=== PATIENT | female | born 1985 | race Caucasian/White ===

== ENCOUNTER 2022-01-29 15:42 | Emergency (ER) | payer OTHER, BC, MEDICAID, SELFPAY ==
--- NOTE | ~2022-01-29 | XR_ITS ---
XR ankle LT min 3V DATE: 01/29/2022 15:57 INDICATION: Bed frame was dragged onto left ankle. Lateral pain. TECHNIQUE: 4 views COMPARISON: None FINDINGS: There is mild lateral ankle soft tissue swelling. No fracture or dislocation of the ankle or disruption of the ankle mortise. No periosteal reaction or bone destruction. IMPRESSION: Mild lateral ankle soft tissue swelling Reviewed, dictated and finalized at location B.
--- NOTE | 2022-01-29 15:47 | ED.LOWEXIN ---
HPI - Extremity Injury (Lower) General Chief Complaint: Extremity Injury, Lower Stated Complaint: Ankle injury Time Seen by Provider: 01/29/22 16:00 Source: patient and RN notes reviewed Mode of arrival: ambulatory Limitations: no limitations History of Present Illness HPI Narrative: 36-year-old female presents with concern for left ankle injury. Reports 5 days ago a friend dropped a box that hit her lateral left ankle causing swelling. Reports she had a surgery to that ankle in November of this year and is concerned for reinjury. She reports swelling. She reports she has a high pain tolerance and has not been having much pain. She reports she wrapped it and iced it and elevated it. She denies open skin, lacerations, abrasions, redness or warm MD complaint: ankle injury Related Data Allergies Allergy/AdvReac Type Severity Reaction Status Date / Time FLUTICASONE PROPIONATE Allergy Severe THROAT Uncoded 07/20/18 13:33 SWELLED SHUT SALMETEROL XINAFOATE Allergy Severe THROAT Uncoded 07/20/18 13:33 SWELLED SHUT Review of Systems Review of Systems: CONSTITUTIONAL: Denies malaise, chills, sweats, or fever. SKIN: Denies rash or itching, open skin, laceration, abrasion, redness, warmth, swelling. MUSCULOSKELETAL: Reports left ankle pain and swelling NEUROLOGIC: Denies numbness, weakness All systems reviewed & are unremarkable except as noted in HPI and below PMFSH Social History Social History Gender identity (if verbalized by the patient): Female Comments At time of signature, agree with nursing past medical, surgical, social and family history. There is no relevant family history pertinent to the presenting complaint Exam Narrative: GENERAL: Well-appearing, well-nourished, and in no acute distress. HEAD: Normocephalic, atraumatic. EYES: PERRLA, conjunctivae clear NECK: Supple. CHEST: Speaks in full sentences. No respiratory distress. HEART: Regular rate and rhythm. Normal and equal peripheral pulses. EXTREMITIES: Left ankle has normal strength and sensation, normal range of motion. Mild lateral edema, no ecchymosis. Normal sensation with sensitivity to light touch and pain. Mild lateral ankle tenderness. No open wounds, no skin tenting, no devitalized tissue or atrophy, no trophic changes, no obvious deformity, alignment normal, nearby joints and structures intact. Distal pulses palpable and equal bilaterally, skin warm, dry, pink. Capillary refill less than 3 seconds. SKIN: Warm, dry, no rash. NEURO: Alert and oriented x3. PSYCH: Normal mood and affect Course Course Emergency Course: Patient is aware of diagnosis, understands and agrees to treatment plan. Anticipatory guidance given. Patient agrees to follow-up as directed and is aware of reasons to seek care at the emergency department. Portions of this record may have been created with voice recognition software Level of Care: Express Care Visit Vital Signs Vital signs: Reviewed. MDM - Extremity Injury (Lower) MDM Narrative Medical decision making narrative: Patients injury and pain is consistent with musculoskeletal etiology. No signs of neurological or vascular compromise on exam. Compartments and tissues are soft without signs of compartment syndrome. Pain is felt appropriate for further evaluation on an outpatient basis. Imaging Data My impression: Images reviewed, interpreted by radiologist, agree, see report. Radiologist's impression: XR ankle LT min 3V DATE: 01/29/2022 15:57 INDICATION: Bed frame was dragged onto left ankle. Lateral pain.? TECHNIQUE: 4 views? COMPARISON: None? FINDINGS: There is mild lateral ankle soft tissue swelling. No fracture or dislocation of the ankle or disruption of the ankle mortise. No periosteal reaction or bone destruction.? IMPRESSION: Mild lateral ankle soft tissue swelling? Critical Care Time Critical Care Time Critical Care Philipp
[2022-01-29 15:58] VITALS: BP 134/97; PULSE 98; RESP 16; TEMP 36.4; O2SAT 100
== END 2022-01-29 16:12 | disposition home or self-care (01) ==
PROVIDERS: Emergency Provider Nurse Practitioner; PCP Nurse Practitioner Adult Health
DX: S99.912A Unspecified injury of left ankle, initial encounter (principal); W20.8XXA Other cause of strike by thrown, projected or falling object, initial encounter
CPT/HCPCS: 73610; 99213; G0463

== ENCOUNTER 2022-05-02 05:20 | Day surgery (SDC) | payer BC, MEDICAID, SELFPAY ==
[2022-05-02] VITALS (16 sets, daily range): BP systolic 104–130; BP diastolic 56–74; PULSE 56–97; RESP 10–20; TEMP 36.2–36.4; O2SAT 95–100
--- NOTE | ~2022-05-02 | XR_ITS ---
EXAMINATION: XR abdomen/kub 1V DATE: 05/02/2022 07:20 INDICATION: Left flank pain TECHNIQUE: A supine view of the abdomen on 2 radiographs was obtained. COMPARISON: CT dated 05/02/2022 FINDINGS: Excreted contrast is seen in the bilateral kidneys with mild left hydronephrosis. There is also a del ayed left nephrogram. The obstructing stone at the distalmost left ureter is obscured by the contrast -filled bladder. Normal bowel gas pattern. Lung bases are clear. Bones are unremarkable. IMPRESSION: 1. Delayed left nephrogram and mild left hydronephrosis due to an obstructing 3 mm on this most left ureter which is seen on prior CT but obscured by the contrast filled bladder in the current study. Reviewed, dictated and finalized at location A. IMPRESSION: 1. Delayed left nephrogram and mild left hydronephrosis due to an obstructing 3 mm on this most left ureter which is seen on prior CT but obscured by the cont rast filled bladder in the current study.
--- NOTE | ~2022-05-02 | CT_ITS ---
EXAMINATION: CT abdomen pelvis w con DATE: 05/02/2022 06:52 INDICATION: Abdominal pain TECHNIQUE: Computed tomography (CT) of the abdomen and pelvis was performed with 100 mL Omnipaque-350 intravenous contrast. Automated exposure control and iterative reconstruction technique were employe d. The dose-length product was 1138.26 mGy-cm. COMPARISON: None FINDINGS: Lung bases are clear. Heart size is normal. No pericardial or pleural effusion. Small sliding-type hi atal hernia. Focal hepatic steatosis at the ligamentum teres. Gallbladder, spleen, pancreas, bilatera l adrenal glands are normal. 8 mm right renal cyst. 2 mm nonobstructing stone at a lower pole calyx o f the left kidney. Additional 3 mm obstructing stone at the distalmost left ureter approximately 1 cm from the ureter vesicular junction. There is mild left hydroureteronephrosis and a delayed left neph rogram. Decompressed bladder, anteverted uterus and bilateral adnexa are unremarkable. Bowels includi ng the appendix are normal. Trace amount of likely physiologic free fluid in the pelvis. No abscess o r free intraperitoneal gas. No pathologically enlarged abdominal or pelvic lymphadenopathy. Bones are unremarkable. IMPRESSION: 1. Left nephrolithiasis with obstructing 3 mm stone in the distalmost left ureter with mild left hydr oureteronephrosis. Reviewed, dictated and finalized at location A. IMPRESSION: 1. Left nephrolithiasis with obstructing 3 mm stone in the distalmost left uret er with mild left hydroureteronephrosis.
--- NOTE | ~2022-05-02 | XR_ITS ---
EXAMINATION: XR retrograde pyelo w/stent LT DATE: 05/02/2022 13:23 INDICATION: Left-sided renal stones TECHNIQUE: 3 fluoroscopic images of the abdomen and pelvis were obtained during procedure performed brian Reynolds. Radiologist was not present for the imaging or procedure. The amount of fluoroscopy t moon used during this procedure was 0.5 minutes. COMPARISON: None. FINDINGS: Insurance Claims Examiner images demonstrate a small amount of residual contrast in the mildly dilated left renal collect ing system and in the bladder likely related to an earlier contrast-enhanced CT. The stone seen on CT at the distalmost left ureter is unable to be identified potentially obscured by the contrast-filled bladder. Subsequent images demonstrate a catheter advanced to the left renal pelvis with injection o f additional more dense contrast within the collecting system which remains mildly dilated. IMPRESSION: 1. Mild left hydronephrosis likely due to previous ischemic obstructing stone in the distalmost left ureter which is not identified in the current study. Correlate with procedure note as to whether the stone was extracted. Reviewed, dictated and finalized at location A. IMPRESSION: 1. Mild left hydronephrosis likely due to previous ischemic obstructing stone i n the distalmost left ureter which is not identified in the current study. Ganesh elate with procedure note as to whether the stone was extracted.
--- NOTE | 2022-05-02 05:44 | ED.GENADULT ---
HPI - General Adult General Chief complaint: Urogenital-Female <Gene Walker DO - Last Filed: 05/03/22 19:10> Stated complaint: Possible Kidney Stones <Gene Walker DO - Last Filed: 05/03/22 19:10> Time Seen by Provider: 05/02/22 05:35 <Gene Walker DO - Last Filed: 05/03/22 19:10> Source: RN notes reviewed <Gene Walker DO - Last Filed: 05/03/22 19:10> History of Present Illness HPI narrative: Patient presents emergency department from home for abdominal pain. Patient states symptoms began approximately 5 hours ago. Pain is located across the bilateral mid abdomen radiates around to the back. The pain is described as sharp and stabbing. Is been associate with nausea and vomiting. Patient denies any fevers or chills denies any diarrhea states she is not take anything for the symptoms at home. <Gene Walker DO - Last Filed: 05/03/22 19:10> Related Data Home medications: Home Medications Medication Instructions Recorded Confirmed albuterol sulfate 90 mcg/actuation 1 puff inhalation PRN 05/02/22 05/02/22 aerosol inhaler <Gene Walker DO - Last Filed: 05/03/22 19:10> Allergies/adverse reactions: Allergies Allergy/AdvReac Type Severity Reaction Status Date / Time FLUTICASONE PROPIONATE Allergy Severe THROAT Uncoded 05/02/22 08:58 SWELLED SHUT SALMETEROL XINAFOATE Allergy Severe THROAT Uncoded 05/02/22 08:58 SWELLED SHUT <Gene Walker DO - Last Filed: 05/03/22 19:10> Review of Systems Review of Systems: Gen.: Denies fevers or chills ENT: Denies congestion Respiratory: Denies shortness of breath or cough CV: Denies chest pain or palpitations GI: see HPI Musculoskeletal: Denies back pain or muscle pain Neuro: Denies numbness, tingling, weakness or focal weakness Skin: Denies rash Except as documented, all other systems reviewed and negative <DO Yariel Scherer Last Filed: 05/03/22 19:10> PMFSH Past Medical History Medical History: Medical History Asthma Endometriosis <Gene Walker DO - Last Filed: 05/03/22 19:10> Social History Social History: Social History Smoking status: Never smoker Gender identity (if verbalized by the patient): Female Sexual Orientation (if Verbalized by the Patient): Straight or Heterosexual <Gene Walker DO - Last Filed: 05/03/22 19:10> Exam Narrative: APPEARANCE: No acute distress, nontoxic, resting in bed HEENT: Normocephalic, atraumatic, OMM RESPIRATORY: No respiratory distress, clear to auscultation bilaterally with no rhonchi wheezing or rales CARDIOVASCULAR: RRR s murmur ABDOMINAL: Soft nondistended diffusely tender to palpation, no rebound or guarding MUSCULOSKELETAl: Moves all extremities. No clubbing, cyanosis or edema. NEURO: Awake and alert. Following commands, speech normal, no focal deficits SKIN:: Warm, dry. Normal Color PSYCHIATRIC: Normal affect/mood <DO Yariel Scherer Last Filed: 05/03/22 19:10> Course FRONT OFFICE ADMINISTRATOR/PA Physician Supervision Care turned over Dr. Garcia significant change awaiting consult with urology and further disposition <Gene Walker DO - Last Filed: 05/03/22 19:10> Reevaluation(s) Reevaluation #1: Patient is still in pain, with severe nausea. 0.5 mg of Dilaudid, 4 mg of Zofran ordered. Dr. Reynolds is coming to the emergency room to evaluate patient for possible stone removal. <Britni Garcia MD - Last Filed: 05/02/22 08:19> Date: 05/02/22 <Britni Garcia MD - Last Filed: 05/02/22 08:19> Time: 08:19 <Britni Garcia MD - Last Filed: 05/02/22 08:19> Vital Signs Vital signs: Vital Signs Temperature 97.6 F 05/02/22 05:29 Pulse Rate 97 05/02/22 05:29 Respiratory Rate 18 05/02/22 05:29 Pulse Oximetry 98 05/02/22 05:29 Oxygen Delivery
[2022-05-02] MEDS: MORPHINE SULFATE (*CRX) 4 MG/ML INJ IV PUSH (05:52)
[2022-05-02] MEDS: ONDANSETRON INJ 4 MG/2 ML VIAL IV PUSH ×2 (05:52→08:00)
[2022-05-02] MEDS: SODIUM CHLORIDE 0.9% IV 1,000 ML 999 ML IV CONT (06:02)
[2022-05-02 06:09] LABS: Basophils Absolute Auto 0.1 K/mm3 (0.0-0.1); Basophils Percent Auto 0.8 % (0.2-1.2); Eosinophils Absolute Auto 0.2 K/mm3 (0-0.3); Eosinophils Percent Auto 1.9 % (0-4.4); Hematocrit 39.4 % (37.0-47.0); Hemoglobin 13.6 g/dL (12.0-15.0); Immature Granulocyte Absolute 0.02 K/mm3 (0.00-0.031); Immature Granulocyte Percent A 0.2 % (0-0.5); Immature Platelet Fraction Pct 3.9 % (0.9-11.2); Lymphocytes Absolute Auto 2.45 K/mm3 (0.9-3.2); Lymphocytes Percent Auto 26.5 % (18.3-44.2); Mean Corpuscular HGB Conc 34.5 g/dl (32-36); Mean Corpuscular Hemoglobin 30.8 pg (26-34); Mean Corpuscular Volume 89.1 fl (80-100); Mean Platelet Volume 10.1 fl (7.4-10.4); Monocytes Absolute Auto 0.6 K/mm3 (0.1-0.6); Monocytes Percent Auto 6.1 % (2.6-8.5); Neutrophils Percent Auto 64.5 % (45.5-73.1); Platelet Count Result 339 k/mm3 (150-375); Red Blood Count 4.42 M/mm3 (4.2-5.4); Red Cell Distribution Width 11.8 % (11.5-14.5); White Blood Count 9.3 K/mm3 (4.5-10.0)
[2022-05-02] MEDS: KETOROLAC 30 MG/ML VIAL (*BKC) IV PUSH (06:12)
[2022-05-02 06:18] LABS: Alanine Aminotransferase 29 U/L (6-35); Albumin Level 4.7 g/dL (3.5-5.1); Alkaline Phosphatase 69 U/L (38-126); Anion Gap 16 mmol/L (8-16); Aspartate Amino Transferase 27 U/L (14-36); Bilirubin,Total 0.5 mg/dL (0.2-1.3); Blood Urea Nitrogen 12 mg/dL (7-17); Carbon Dioxide 24 mmol/L (22-30); Chloride 103 mmol/L (98-107); Estimated Glomerular Filt Rate > 60; Glucose 115 mg/dL (65-110); Lipase 54 U/L (23-300); Potassium 3.7 mmol/L (3.4-5.0); Sodium 143 mmol/L (137-145)
[2022-05-02 06:26] LABS: Appearance Urine Cloudy (Clear); Bilirubin Urine 1+ (Negative); Blood Urine 2+ (Negative); Color Urine Yellow (Yellow); Glucose Urine UA Negative (Negative); Ketones Urine Trace mg/dL (Negative); Leukocyte Esterase Ur 1+ LEU/UL (Negative); Nitrate Urine Negative (Negative); Protein Urine 1+ mg/dL (Negative); Specific Grav Ur >= 1.030 (1.001-1.035); Urobilinogen Urine 0.2 mg/dL (<2.0); pH Urine 5.5 (5.0-9.0)
[2022-05-02 06:31] LABS: Bacteria Urine Trace /hpf; Mucus Urine Moderate /lpf; RBC Urine 51-75 /hpf (0-2); Squamous Epithelial Cell Urine Many /hpf (Few); WBC Urine 51-75 /hpf
[2022-05-02 06:35] LABS: Add Urine Microscopic? YES
[2022-05-02] MEDS: MORPHINE SULFATE (*CRX) 2 MG/ML INJ IV PUSH ×2 (07:04→07:21)
[2022-05-02] MEDS: HYDROmorphone HCL INJ (*CRX) 1 MG/ML SYR 0.5 MG IV PUSH (08:00)
[2022-05-02] MEDS: LACTATED RINGERS 1,000 ML 30 ML IV CONT ×2 (08:55→09:19)
--- NOTE | 2022-05-02 09:10 | WPDURCON ---
Assessment and Plan Assessment and plan (1) Left ureteral calculus: Code(s): N20.1 - Calculus of ureter Status: Acute Assessment and Plan: Given persistent discomfort have recommended proceeding with cysto retrograde left ureteral stent placement at a minimum. If urine does not appear grossly infected may consider ureteroscopy with stone extraction laser at the same setting. Patient understands and wishes to proceed. Urology Consult Note HPI Date Seen: 05/02/22 Time Seen: 09:10 Requesting Physician: Scooter Reynolds MD Primary Care Provider: April Colvin, [employer] Consult Narrative Reason for consult: Obstructing distal left ureteral calculus with renal colic Narrative: Pili David is a 36 year old female who developed acute onset of left flank pain as well as lower abdominal discomfort approximately 6 hours ago. Patient denies any prior history of stones. Denies any fevers. Patient denies any dysuria also. Evaluation in the emergency room revealed a an obstructing 3 mm distal left ureteral stone with marked delay in excretion from the kidney. Patient has been having quite a bit of pain with nausea. I am asked to see her for more definitive therapy. Review of Systems Review of Systems: All systems reviewed & are unremarkable except as noted in HPI and below PMFSH Past Medical History Medical History Asthma Endometriosis Social History Social History Smoking status: Never smoker Gender identity (if verbalized by the patient): Female Meds Home Medications and Allergies Home Medications Medication Instructions Recorded Confirmed Type albuterol sulfate 90 mcg/actuation 1 puff inhalation PRN 05/02/22 05/02/22 History aerosol inhaler Allergies Allergy/AdvReac Type Severity Reaction Status Date / Time FLUTICASONE PROPIONATE Allergy Severe THROAT Uncoded 05/02/22 08:58 SWELLED SHUT SALMETEROL XINAFOATE Allergy Severe THROAT Uncoded 05/02/22 08:58 SWELLED SHUT Vital Signs Vital Signs - 24 hr 05/02/22 05:29 05/02/22 07:34 05/02/22 07:50 Temperature 36.4 C 36.4 C 36.4 C Pulse Rate 97 Respiratory Rate 18 Blood Pressure Pulse Oximetry 98 Oxygen Delivery Room Air 05/02/22 08:07 05/02/22 08:30 Temperature 36.4 C 36.4 C Pulse Rate 78 Respiratory Rate 14 Blood Pressure 123/71 Pulse Oximetry 99 Oxygen Delivery Exam Const: General: cooperative; No comfortable HENMT: Head: normal to inspection Resp: Effort & Inspection: normal respiratory effort Cardio: Rate: regular rate Rhythm: regular rhythm GI: Inspection: normal to inspection GI Palp: Yes Soft to palpation Results Labs CBC & Chem 7: 05/02/22 06:01 05/02/22 06:01 Labs: Short CBC 05/02/22 Range/Units 06:01 WBC 9.3 (4.5-10.0) K/mm3 Hgb 13.6 (12.0-15.0) g/dL Hct 39.4 (37.0-47.0) % Plt Count 339 (150-375) k/mm3 BMP 05/02/22 06:01 Sodium 143 Potassium 3.7 Chloride 103 Carbon Dioxide 24 BUN 12 Creatinine 0.70 Glucose 115 H Calcium 9.0 Liver Function 05/02/22 Range/Units 06:01 Total Bilirubin 0.5 (0.2-1.3) mg/dL AST 27 (14-36) U/L ALT 29 (6-35) U/L Alkaline Phosphatase 69 (38-126) U/L Albumin 4.7 (3.5-5.1) g/dL Urine 05/02/22 Range/Units 06:03 Urine Color Yellow (Yellow) Urine Appearance Cloudy H (Clear) Urine pH 5.5 (5.0-9.0) Ur Specific [place] >= 1.030 (1.001-1.035) Urine Protein 1+ H (Negative) mg/dL Urine Glucose (UA) Negative (Negative) mg/dL
--- NOTE | 2022-05-02 09:30 | WPDANESEPPF ---
Anes - Initial Pre Proc Eval Procedure: Operation Date: 05/02/22 16:00 Proposed Procedures p Cystoscopy, Left Ureteroscopy, Possible Left Retrograde Pyelogram, Possible Left Stone Extraction, Possible Left Stent Placement, Possible Holmium Laser Procedure - Scooter Reynolds MD Date/Time: 05/02/22 09:30 Surgeon: Scooter Reynolds MD Pre Op Diagnosis: Possible Kidney Stones Patient Data Age: 36 Gender: F Height: 1.65 m Weight: 100 kg Last Vital Signs Temp 36.3 C L 05/02/22 09:01 Pulse 77 05/02/22 09:01 Resp 16 05/02/22 09:01 BP 118/67 05/02/22 09:01 Pulse Ox 98 05/02/22 09:01 O2 Del Method Room Air 05/02/22 09:01 Allergies Allergy/AdvReac Type Severity Reaction Status Date / Time FLUTICASONE PROPIONATE Allergy Severe THROAT Uncoded 05/02/22 08:58 SWELLED SHUT SALMETEROL XINAFOATE Allergy Severe THROAT Uncoded 05/02/22 08:58 SWELLED SHUT Home Medications Medication Instructions Recorded Confirmed Type albuterol sulfate 90 mcg/actuation 1 puff inhalation PRN 05/02/22 05/02/22 History aerosol inhaler Laboratory Tests 05/02/22 05/02/22 05/02/22 06:01 06:01 06:03 WBC 9.3 K/mm3 K/mm3 (4.5-10.0) RBC 4.42 M/mm3 M/mm3 (4.2-5.4) Hgb 13.6 g/dL g/dL (12.0-15.0) Hct 39.4 % % (37.0-47.0) MCV 89.1 fl fl (80-100) MCH 30.8 pg pg (26-34) MCHC 34.5 g/dl g/dl (32-36) RDW 11.8 % % (11.5-14.5) Plt Count 339 k/mm3 k/mm3 (150-375) MPV 10.1 fl fl (7.4-10.4) Immature Gran % (Auto) 0.2 % % (0-0.5) Neut % (Auto) 64.5 % % (45.5-73.1) Lymph % (Auto) 26.5 % % (18.3-44.2) Ness % (Auto) 6.1 % % (2.6-8.5) Eos % (Auto) 1.9 % % (0-4.4) Baso % (Auto) 0.8 % % (0.2-1.2) Lymph # (Auto) 2.45 K/mm3 K/mm3 (0.9-3.2) Ness # (Auto) 0.6 K/mm3 K/mm3 (0.1-0.6) Eos # (Auto) 0.2 K/mm3 K/mm3 (0-0.3) Baso # (Auto) 0.1 K/mm3 K/mm3 (0.0-0.1) Abs Immat Gran (auto) 0.02 K/mm3 K/mm3 (0.00-0.031) Absolute Neuts (auto) 6.0 K/mm3 K/mm3 (1.3-6.7) Absolute Nucleated RBC 0.0 K/mm3 K/mm3 (0.0-0.012) Nucleated RBC % 0.0 % % (0.0-0.2) % Immature Plt Fraction 3.9 % % (0.9-11.2) Sodium 143 mmol/L mmol/L (137-145) Potassium 3.7 mmol/L mmol/L (3.4-5.0) Chloride 103 mmol/L mmol/L (98-107) Carbon Dioxide 24 mmol/L mmol/L (22-30) Anion Gap 16 mmol/L mmol/L (8-16) BUN 12 mg/dL mg/dL (7-17) Creatinine 0.70 mg/dL mg/dL (0.7-1.0) Estim Creat Clear Calc Not Reportable Estimated GFR > 60 (59 - ) Glucose 115 mg/dL H mg/dL (65-110) Calcium 9.0 mg/dL mg/dL (8.4-10.2) Total Bilirubin 0.5 mg/dL mg/dL (0.2-1.3) AST 27 U/L U/L (14-36) ALT 29 U/L U/L (6-35) Alkaline Phosphatase 69 U/L U/L (38-126) Total Protein 8.0 g/dL g/dL (6.3-8.2) Albumin 4.7 g/dL g/dL (3.5-5.1) Lipase 54 U/L U/L (23-300) Urine Color Yellow (Yellow) Urine Appearance Cloudy H (Clear) Urine pH 5.5 (5.0-9.0) Ur Specific [place] >= 1.030 (1.001-1.035) Urine Protein 1+ mg/dL H mg/dL (Negative) Urine Glucose (UA) Negative mg/dL mg/dL (Negative) Urine Ketones Trace mg/dL mg/dL (Negative) Ur Blood (Man) 2+ H (Negative) Urine Nitrate Negative (Negative) Urine Bilirubin 1+ H (Negative) Urine Urobilinogen 0.2 mg/dL mg/dL (<2.0) Leukocyte Esterase Rfl 1+ LUCILA/UL H LUCILA/UL (Negative) Urine RBC 51-75 /hpf H /hpf (0-2) Urine WBC 51-75 /hpf H /hpf Ur Squamous Epith Cells Many /hpf H /hpf
--- NOTE | 2022-05-02 11:05 | WPDHPUPDATE1 ---
History and Physical Update Update Date/Time: 05/02/22 11:05 History and Physical has been reviewed, including an updated exam of the patient. There are NO changes in the patient's condition. Risks, benefits, and alternatives have been discussed and questions answered. Patient agrees to proceed with procedure. Proceed with cysto, left retrograde pyelogram, left stent placement, possible ureteroscopy with holmium laser stone extraction
[2022-05-02] MEDS: diphenhydrAMINE HCl INJ 50 MG/ML VIAL 25 MG IV PUSH (12:25)
[2022-05-02] MEDS: SCOPOLAMINE 1.5 MG PATCH TRANSDERM (12:28)
[2022-05-02] MEDS: LIDOCAINE HCL 2% GEL UROJET 10 ML PKG MUCOUS MEM (13:12)
--- NOTE | 2022-05-02 13:21 | W.PM.PROC2 ---
Procedure Note - Detailed Date of Procedure 05/02/22 Pre-op Diagnosis Obstructing left ureteral calculus Post-op Diagnosis Same Procedure Performed Cystoscopy, left retrograde pyelogram, left ureteroscopy with stone extraction, left ureteral stent placement 4.8 Dominican contour Surgeon Scooter Reynolds MD Anesthesia General Description of Procedure Patient is taken to the operative suite correctly identified. Once anesthesia was obtained she was placed in dorsal lithotomy position and prepped and draped usual sterile fashion. Twenty-two Dominican scope inserted in the bladder there were no tumors noted. Left orifice was cannulated with a guidewire. There was no evidence of purulence at this time. We dilated the orifice using an 8/10 dilator. Rigid ureteral scope was then inserted into the left orifice. The stone was visualized in the distal intramural ureter. Using an escape basket retrieved the stone in 1 piece and sent it for analysis. Reinspection of the ureter revealed no residual stones. Pyelogram was then performed to confirm placement of the stent. 4.8 Dominican contour stent was then placed with the proximal end coiled in the renal pelvis and the distal in the bladder. Bladder was drained. 2% viscous lidocaine was inserted into the urethra patient is taken recovery stable condition. She will be discharged home on pain meds and antibiotic. Follow up in 1 week to 10 days for stent removal. Estimated Blood Loss 0 Drains Yes Pathology Yes Complications No immediate complications Condition Stable Disposition PACU
[2022-05-02] MEDS: fentaNYL CITRATE INJ (*CRX) 100 MCG/2 ML VIAL 25 MCG IV PUSH ×4 (14:09→14:49)
[2022-05-02] MEDS: oxyCODONE HCL (*CRX) 5 MG TAB IR PO (15:22)
== END 2022-05-02 16:00 | disposition home or self-care (01) ==
LOC: ANHED 08:01 → ANHSURGERY 08:09
PROVIDERS: Emergency Medicine; Emergency Provider Emergency Medicine; PCP Nurse Practitioner Adult Health; Visit Provider Urology
PROC: (CPT 52352; principal; 2022-05-02 16:00)
DX: N20.1 Calculus of ureter (principal); J45.909 Unspecified asthma, uncomplicated
CPT/HCPCS: 52332; 52352; 36415; 74018; 74177; 74420; 80053; 81001; 81025; 82365; 83690; 85025; 85055; 87086; 87088; 88300; 96361; 96365; 96375; 96376; 99285; A9270; C1769; C2617; J0696; J1100; J1170; J1200; J1885; J2250; J2270; J2405; J2704; J3010; J7030; J7120; Q9966; Q9967

== ENCOUNTER → 2022-06-17 11:37 | Outpatient (CLI) | payer BC, MEDICAID, SELFPAY ==
--- NOTE | ~2022-06-17 | US_ITS ---
EXAMINATION: US retroperitoneal comp DATE: 06/17/2022 12:17 INDICATION: Right ureteral stone post stent placement which was subsequently removed 2 weeks prior TECHNIQUE: Multiple ultrasound grayscale images of the kidneys were obtained. COMPARISON: CT dated 05/02/2022 FINDINGS: The right kidney measures 8.8 x 4.7 x 5.3 cm. The left kidney measures 9.3 x 5.3 x 4.8 cm. The kidney s demonstrate normal echogenicity. There is no hydronephrosis in either kidney. No stones identified . The bladder is normal. IMPRESSION: 1. Normal kidneys without hydronephrosis. Reviewed, dictated and finalized at location B. FORCE ADVISOR
== END ==
PROVIDERS: PCP Nurse Practitioner Adult Health; Visit Provider Urology
DX: N20.1 Calculus of ureter (principal)
CPT/HCPCS: 76770

== ENCOUNTER 2023-02-02 13:52 | Outpatient (CLI) | payer BC, MEDICAID, SELFPAY ==
[2023-02-02 19:20] LABS: Hematocrit 41.2 % (37.0-47.0); Hemoglobin 13.8 g/dL (12.0-15.0); Mean Corpuscular HGB Conc 33.5 g/dl (32-36); Mean Corpuscular Hemoglobin 30.4 pg (26-34); Mean Corpuscular Volume 90.7 fl (80-100); Mean Platelet Volume 10.3 fl (7.4-10.4); Platelet Count Result 354 k/mm3 (150-375); Red Blood Count 4.54 M/mm3 (4.2-5.4); Red Cell Distribution Width 11.9 % (11.5-14.5); White Blood Count 8.6 K/mm3 (4.5-10.0)
[2023-02-02 20:40] LABS: Alanine Aminotransferase 26 U/L (6-35); Albumin Level 4.4 g/dL (3.5-5.1); Alkaline Phosphatase 62 U/L (38-126); Anion Gap 9 mmol/L (8-16); Aspartate Amino Transferase 44 U/L (14-36); Bilirubin,Total 0.5 mg/dL (0.2-1.3); Blood Urea Nitrogen 13 mg/dL (7-17); Calcium 8.8 mg/dL (8.4-10.2); Carbon Dioxide 27 mmol/L (22-30); Chloride 103 mmol/L (98-107); Cholesterol 203 mg/dL (0-200); Estimated Glomerular Filt Rate > 60; Glucose 99 mg/dL (65-110); HDL Direct 34 mg/dL; Potassium 4.1 mmol/L (3.4-5.0); Sodium 139 mmol/L (137-145); Triglycerides 135 mg/dL (<150)
[2023-02-02 20:49] LABS: LDL Cholesterol Direct 132 mg/dL
== END 2023-02-02 13:53 | disposition home or self-care (01) ==
LOC: ANHCATHLAB 13:54 → ANHBWCLAB 13:57
PROVIDERS: PCP Nurse Practitioner Adult Health; Visit Provider Nurse Practitioner Adult Health
DX: Z13.228 Encounter for screening for other metabolic disorders (principal); Z13.220 Encounter for screening for lipoid disorders; R73.9 Hyperglycemia, unspecified; Z13.9 Encounter for screening, unspecified
CPT/HCPCS: 36415; 80053; 80061; 83036; 85027

== ENCOUNTER 2023-06-11 09:41 | Outpatient (CLI) | payer BC, MEDICAID, SELFPAY ==
--- NOTE | ~2023-06-11 | CT_ITS ---
Non-contrast Head CT History: Headache Technique: Axial non-contrast imaging of the brain was performed. Dose reduction technique was used on this scan by utilizing automated exposure control and iterative reconstruction technique. The dose -length product (DLP) was 605.33 mGy-cm. Findings: There is no evidence of intracranial hemorrhage, mass lesion, or acute infarct. Brain par enchyma appears normal. The ventricles and subarachnoid spaces are normal in size. The calvarium ap pears normal. The visualized paranasal sinuses and mastoid air cells are clear. Impression: No significant abnormality seen. Reviewed, dictated and finalized at location . GER ORGANIZATIONAL Impression: No significant abnormality seen.
== END 2023-06-11 09:42 | disposition home or self-care (01) ==
PROVIDERS: PCP Nurse Practitioner Adult Health; Visit Provider Nurse Practitioner Adult Health
DX: R51.9 Headache, unspecified (principal)
CPT/HCPCS: 70450

== ENCOUNTER 2023-10-22 10:33 | Outpatient (CLI) | payer BC, MEDICAID, SELFPAY ==
--- NOTE | ~2023-10-22 | MR_ITS ---
MRI of the left ankle Clinical history: Peroneal tendinitis Technique: Coronal proton-density and proton-density fat-sat images, axial proton-density and proton- density fat-sat images, and sagittal proton-density and proton-density fat-sat images were acquired. Findings: Syndesmotic ligament are intact. Anterior and posterior talofibular ligaments, and calcaneo fibular ligament are intact. Deltoid ligament is intact. Medial flexor tendons, peroneal tendons, anterior extensor tendons, and Achilles tendon are intact. No osteochondral lesion of the talar dome identified. Bone marrow signals are unremarkable. Joint spaces are preserved. No significant joint effusion. Plantar fascial intact. Normal signal preserved in the sinus Tarsi. No soft tissue mass or fluid lo ection seen. Impression: No significant abnormality identified. Reviewed, dictated and finalized at [facility]. Impression: No significant abnormality identified.
== END 2023-10-22 10:34 | disposition home or self-care (01) ==
LOC: ANHIMG 10:34
PROVIDERS: PCP Nurse Practitioner Adult Health; Visit Provider Orthopaedic Surgery
DX: M25.572 Pain in left ankle and joints of left foot (principal); M76.72 Peroneal tendinitis, left leg
CPT/HCPCS: 73721

== ENCOUNTER 2025-01-11 13:52 | Outpatient (CLI) | payer MEDICAID, SELFPAY ==
--- OUTSIDE RECORDS SUMMARY | 2025-01-11 16:31 | XMS_ITS | Continuity of Care Document ---
Author Organization [facility] Address [address] [place] [address] Phone Care Team Providers Care Community Center Coordinator Name Role Phone Mathur OD, José Unavailable Unavailable Advance Directives Directive Yes / No Effective Date File Name No Information Encounters Encounter Description Practice Location Reason(s) For Visit Diagnoses Date Provider Providers Copied on Encounter [facility], [address], [place], [place], [id number], [place] tel:[phone] [address] [facility] No Information Apr-2 8-200 6 Mathur OD José. [address] , [address], [place], [address], [place]. tel:[phone] Family History Family Member Type Diagnosis Age At Onset No Information Payers Payer name Insurance type Covered republican ID Authoriza tion(s) Medicaid [employer] [id number] Social History Type Description Quantity Date Captured Comments Sex Female Smoking Status No Information Chief Complaint And Reason For Visit No Information Reason For Referral Reason For Referral No Information History Of Present Illness Encounter Date Complaint History Of Prese nt Illness No Information Functional Status Date Functional Assessmen t No Information Instructions Date Instruction Additional Infor mation No Information Assessments Type Assessment Date No Information Patient Care Teams Name Effective Dates (start - stop) Status Members No Information
[2025-01-11 19:45] LABS: Hematocrit 40.1 % (37.0-47.0); Hemoglobin 13.1 g/dL (12.0-15.0); Mean Corpuscular HGB Conc 32.7 g/dl (32-36); Mean Corpuscular Hemoglobin 29.7 pg (26-34); Mean Corpuscular Volume 90.9 fl (80-100); Mean Platelet Volume 10.2 fl (7.4-10.4); Platelet Count Result 399 k/mm3 (150-375); Red Blood Count 4.41 M/mm3 (4.2-5.4); Red Cell Distribution Width 12.4 % (11.5-14.5); White Blood Count 11.4 K/mm3 (4.5-10.0)
[2025-01-11 20:51] LABS: Hemoglobin A1C 4.8 % (<5.7)
[2025-01-11 21:33] LABS: Alanine Aminotransferase 25 U/L (6-35); Albumin Level 4.5 g/dL (3.5-5.1); Alkaline Phosphatase 69 U/L (38-126); Anion Gap 11 mmol/L (4-12); Aspartate Amino Transferase 58 U/L (14-36); Bilirubin,Total 0.6 mg/dL (0.2-1.3); Blood Urea Nitrogen 14 mg/dL (7-17); Calcium 9.5 mg/dL (8.4-10.2); Carbon Dioxide 23 mmol/L (22-30); Chloride 104 mmol/L (98-107); Cholesterol 227 mg/dL (0-200); Estimated Glomerular Filt Rate > 60; Glucose 79 mg/dL (65-110); HDL Direct 40 mg/dL; Potassium 4.2 mmol/L (3.4-5.0); Sodium 138 mmol/L (137-145); Triglycerides 121 mg/dL (<150)
[2025-01-11 21:48] LABS: LDL Cholesterol Direct 137 mg/dL
[2025-01-11 22:04] LABS: Thyroid Stimulating Hormone 0.984 uIU/mL (0.465-4.680)
== END 2025-01-11 13:53 | disposition home or self-care (01) ==
PROVIDERS: PCP Nurse Practitioner Adult Health; Visit Provider Nurse Practitioner Adult Health
DX: Z00.00 Encounter for general adult medical examination without abnormal findings (principal); R73.9 Hyperglycemia, unspecified
CPT/HCPCS: 36415; 80053; 80061; 83036; 84443; 85027

== ENCOUNTER 2025-01-16 00:48 | Day surgery (SDC) | payer BC, MEDICAID, SELFPAY ==
[2025-01-13 10:53] VITALS: BMI 37.0
--- NOTE | 2025-01-13 11:04 | PC.NURSE ---
Addendum entered by Gloria Magana RN 01/13/25 11:08: Pt is aware NO Tramadol or Motrin/IBUPROFEN prior to surgeryJRRN Original Note: Report to the Outpatient Waiting Room, entrance under the green pavilion located off [facility], at time __130pm on date __01/16/25 . Planned Procedure Time: ___330pm .? Time changes happen often and if your time is changed the preop area will call you the afternoon before. - You and your visitor will be asked to self-screen and do not enter if you have any COVID symptoms. Please call surgeon if you need to reschedule. - A mask is optional within the hospital at this time. Patients may have clear liquids (water, carbonated beverages, clear teas, apple juice) until 3 hours prior to surgery with a maximum of 20 ounces. - No food from midnight until time of surgery and no smoking, or chewing tobacco (or any form of nicotine). No chewing gum, candy or mints. (12:30pm) Take only the following medications with a SIP of water on the morning of surgery: Nasal Mupirocin as ordered DO NOT STOP ANY OF YOUR OTHER PRESCRIPTION MEDICATIONS PRIOR TO SURGERY EXCEPT THE FOLLOWING Hold all vitamins and supplements for 3 days per anesthesiologist. Medications to discontinue per physician NONE Date to take last dose NONE Please no make-up, nail serbian, hairspray, perfume, deodorant, or body powder the day of surgery.? No jewelry (including any body piercings) or valuables the day of surgery, leave them at home.? Please take a shower or bath the night before, or the morning of, surgery with an antibacterial soap.? Wear comfortable, loose fitting clothing.? - Jewelry must be removed prior to entering the operating room.? Rings and piercings that are not removed may be cut off. - The hospital will not accept responsibility for valuables.? - Please leave all valuables, including medications, at home the day of surgery. If you are going home after surgery, a licensed electric screw driver operator must drive you home.? - NO public transportation without another adult if you receive anesthesia. - We recommend that an adult stay with you for 24 hours following discharge. - We also recommend that you do not drive, make important decision, drink alcoholic beverages, or take any drugs that were not prescribed by your health care provider for at least 24 hours after your discharge time. Follow any additional instructions given to you from your surgeon. Telephone instructions given to __Patient and asked if any additional questions and then verbalized understanding. Patient advised to call surgeon office or pre surgery nurse liaison [phone] if any additional questions.
[2025-01-16] VITALS (10 sets, daily range): BP systolic 86–124; BP diastolic 46–70; PULSE 60–88; RESP 12–21; TEMP 36.2; O2SAT 94–100; BMI 36.3
--- OUTSIDE RECORDS SUMMARY | 2025-01-16 00:54 | XMS_ITS | Clinical Summary ---
Author Organization [facility] Address [address] [address] Care Team Providers Care V Groove Cutter Name Role Phone April Colvin [facility]US RECRUITER Primary Care Provider + Source Comments [facility],non-owned Affiliates and Associated Physician Practices is amultiple site organization consisting of ambulatory clinics and hospital sitesin [place], [place], [place] and [place]. This disclosure is being madepursuant to the Care Everywhere program and may not contain all information available regarding this patient. Last updated 18.[facility] Allergies Active Allergy Reactions Criticality Noted Date Comments Advair Diskus Anaphylaxis High 12/09/2021 Throat swells Medications * Be aware that medications may not be up to date on this document. Alwaysverify current medications with the patient. albuterol HFA (Proventil; Ventolin; Proair) 108 (90 Base) MCG/ACT inhaler Inhale 2 (two) puffs by mouth every 4 hours as needed for Shortness of Breath or Wheezing 3 Active Immunizations Immunization Administration Dates Next Due HEP A/HEP B 03/17/2019 INFLUENZA VACCINE 07/23/2018,05/05/2015,09/01/19 15 MMR 09/01/2014 PNEUMOCOCCAL PPSV23 09/01/2014 TDAP (7yrs+) 03/21/2019,03/17/2019,07/23/2018 ,09/01/2014 Social History Tobacco Use Types Packs/Day Years Used Date Smoking Tobacco: Never Assessed Comments Unknown Sex and Gender Information Value Date Recorded Sex Assigned at Not on file Legal Sex Female 5:37 AM R [employer] Gender Identity Not on file Sexual Orientation Not on file Plan of Treatment Health Maintenance Due Date Last Done Comments PAP SMEAR 1986 HIV SCREENING 2001 HEPATITIS C SCREENING 11/05/2004 HEPATITIS B VACCINE (2 of 3 - Hep B Twinrix 3-dose series) 04/14/2019 03/17/2019 COVID-19 VACCINE ( season) 2024 DEPRESSION SCREENING 08/03/2024 INFLUENZA VACCINE (Season Ended) 2025 07/23/2018, 05/05/2015, 09/01/2014 DTAP/TDAP/TD VACCINES (5 - Td or Tdap) 03/21/2029 03/21/2019, 03/17/2019, 07/23/2018, Additional history exists ZOSTER VACCINE (1 of 2) 2036 PNEUMOCOCCAL VACCINE Aged Out 09/01/2014 No long er eligible based on patient's age to complete this topic HIB VACCINE Aged Out No longer eligi ble based on patient's age to complete this topic HPV VACCINE Aged Out No longer eligi ble based on patient's age to complete this topic MENINGOCOCCAL (Group B) VACCINE SHARED DECISION-MAKING Aged Out No longer eligible based on patient's age to complete this topic MENINGOCOCCAL GROUPS A/C/Y/W VACCINE Aged Out No longer eligible based on patient's age to complete this topic Insurance * Guarantor: [id number] Account Type Relation to Patient Date of Phone Billing Address Workers Comp Employer [employer] [place] - [place] [facility] Care Teams V Groove Cutter Relationship Specialty Start Date End Date April Colvin APRN-RUBIO [address] [address] PCP - General 05/08/22
--- OUTSIDE RECORDS SUMMARY | 2025-01-16 00:54 | XMS_ITS | Continuity of Care Document ---
Author Organization [facility] Address [address] [place] [address] Phone Care Team Providers Care Stabber Name Role Phone Mathur OD, José Unavailable Unavailable Advance Directives Directive Yes / No Effective Date File Name No Information Encounters Encounter Description Practice Location Reason(s) For Visit Diagnoses Date Provider Providers Copied on Encounter [facility], [address], [place], [place], [id number], [place] tel:[phone] [address] [facility] No Information Apr-2 8-200 6 Mathur OD José. [address] , [address], [place], [address], [place]. tel:[phone] Family History Family Member Type Diagnosis Age At Onset No Information Payers Payer name Insurance type Covered constitution party ID Authoriza tion(s) Medicaid [facility] [id number] Social History Type Description Quantity Date Captured [...]
--- OUTSIDE RECORDS SUMMARY | 2025-01-16 00:54 | XMS_ITS | Clinical Summary ---
Author Organization [facility] Address [address] [place] [address] Care Team Providers Care Child Development Director Name Role Phone April Colvin DEX Primary Care Provider [phone] Allergies Active Allergy Reactions Criticality Noted Date Comments Fluticasone-Salmeterol Anaphylaxis High 12/09/2021 Throat swells Medications albuterol sulfate HFA 108 (90 Base) MCG/ACT inhaler albuterol sulfate HFA 90 mcg/actuation aerosol inhaler Active Active Problems No known active problems Immunizations Immunization Administration Dates Next Due Hepatitis A/Hepatitis B(Twinrix) 03/17/2019 Influenza Adult (Generic) 07/23/2018,05/05/2015, 09/01/2014 MMR (MMRII) 09/01/2014 Pneumococcal (Pneumovax 23) 09/01/2014 Tdap (Generic) 03/21/2019,03/17/2019,07/23/2018 ,09/01/2014 Family History Medical History Relation Comments No Known Problems Brother No Known Problems Father No Known Problems Maternal Aunt No Known Problems Maternal Grandfather No Known Problems Maternal Grandmother No Known Problems Maternal Uncle No Known Problems Mother No Known Problems Other No Known Problems Paternal Aunt No Known Problems Paternal Grandfather No Known Problems Paternal Grandmother No Known Problems Paternal Uncle No Known Problems Sister Relation Status Comments Brother Father Maternal Aunt Maternal Grandfather Maternal Grandmother Maternal Uncle Mother Other Paternal Aunt Paternal Grandfather Paternal Grandmother Paternal Uncle Sister Social History Tobacco Use Types Packs/Day Years Used Date Smoking Tobacco: Never Smokeless Tobacco: Never Comments:NA Alcohol Use Standard Drinks/Week Comments Yes 0 (1 standard drink = 0.6 oz pur e alcohol) rarely PHQ-2 Answer Date Recorded PHQ-2 Score - If the patient scores above 3, please move on to questions 3-9 0 12/09/2021 Comments No Sex and Gender Information Value Date Recorded Sex Assigned at Not on file Legal Sex Female 9:08 AM CDT Gender Identity Not on file Sexual Orientation Not on file Last Filed Vital Signs Vital Sign Reading Time Taken Comments Blood Pressure 122/76 12/09/2021 1:34 PM CDT Pulse 85 12/09/2021 1:34 PM CDT Temperature 36.4 C (97.5 F) 12/09/2021 1:34 PM CDT Respiratory Rate - - Oxygen Saturation 100% 12/09/2021 1:34 PM CDT Inhaled Oxygen Concentration - - Weight 100.3 kg (221 lb 3.2 oz) 12/09/2021 1:34 PM CDT Height 165.1 cm (5' 5) 12/09/2021 1:34 PM CDT Body Mass Index 36.81 12/09/2021 1:34 PM CDT Plan of Treatment Health Maintenance Due Date Last Done Comments Cervical Cancer Screening Pap Smear (Age 30 to 64) Every 3 Years 1986 Annual Physical 1989 Hepatitis C 2004 Cervical Cancer Screening Pap with HPV Testing (Age 30 to 64) Every 5 Years 2016 Cervical Cancer Screening with HPV 2016 Hepatitis B Vaccines (2 of 3 - Hep B Twinrix 3-dose series) 04/14/2019 03/17/2019 COVID-19 Vaccine ( season) 2024 DTaP, Tdap and Td Vaccines (5 - Td or Tdap) 03/21/2029 03/21/2019, 03/17/2019, 07/23/2018, Additional history exists Pneumococcal Vaccine: Pediatrics (0 to 5 Years) and At-Risk Patients (6 to 49 Years) Aged Out 09/01/2014 No longer eligible based on patient's age to complete this topic HPV Vaccines Aged Out No longer eligi ble based on patient's age to complete this topic Meningococcal B Vaccine Aged Out No l onger eligible based on patient's age to complete this topic Meningococcal Vaccine Aged Out No yas jyothi eligible based on patient's age to complete this topic RSV Immunizations Under 20 Months Aged Out No longer eligible based on patient's age to complete this topic Insurance MEDICAID Care Teams Child Development Director Relationship Specialty Start Date End Date April Colvin NP [address] [place] [id number] PCP - General NURSE PRACTITIONER 12/09/21
--- OUTSIDE RECORDS SUMMARY | 2025-01-16 00:54 | XMS_ITS | Patient Health Record ---
Author Organization [facility] Address [address] [place] [address] Care Team Providers Care Helminthologist Name Role Phone April Colvin Primary Care Provider Teo Avila DPM Unavailable [phone] ALLERGIES Allergen (clinical drug ingredient) Drug/Non Drug Allergy documented on EMR Reaction Allergy Type Onset Date Status fluticasone / salmeterol Advair Diskus Unknown Drug Allergy Active REASON FOR REFERRAL No Information MEDICATIONS Medication SIG (Take, Route, Frequency, Duration) Notes Start Date End Date Status Albuterol Active SOCIAL HISTORY Tobacco Use: Social History Observation Description Date Details (start date - stop date) Never Smoker NA - NA Sex Assigned At : Social History Observation Description Sex Assigned At Unknown Tobacco Use: Question Answer Notes Patient is a: nonsmoker Alcohol screening: Question Answer Notes Did you have a drink containing alcohol in the p ast year? No Points 0 Interpretation Negative PROBLEMS Problem Type ICD Code Onset Dates Problem Status W/U Status Risk SNOMED Code Notes Problem Pain in left ankle and joints of left foot (M25.572) 2 Active confirmed 535087796 Problem Other chronic pain (G89.29) 2 Active confirmed 07110519 Problem Contusion of left ankle, sequela (S90.02XS) 2 Active confirmed 41839317074939793 Problem Striking against or struck by other objects, sequela (W22.8XXS) 2 Active confirmed 21221132 PLAN OF TREATMENT No Information Insurance Providers Payer Name Payer Address Payer Phone Subscriber Number Group Number Insured Name Patient Relationship to Insured Coverage Start Date Coverage End Date [address] [address] [place] [address] [id number] Pili David Self - patient is the insured MEDICAL (GENERAL) HISTORY Surgical History Surgery Date(Month/Year) ankle surgery
--- OUTSIDE RECORDS SUMMARY | 2025-01-16 00:54 | XMS_ITS | Data Portability ---
Author Organization [place] [facility], Main Office Address [address] [place] [address] Care Team Providers Care Rn Transitional Name Role Phone MALACHIURI CHEEMA Primary Care Provider MAN URI Referring Provider [phone] NICANOR NGUYEN Accounting Machine Servicer [phone] Assessment Encounter Date Assessment Date Assessment LastModified by Organization Details LastModified Time 01/12/2023 01/12/2023 This note is dictated and transcribed by [employer]. Enterostomal Nurse variances may occur. Despite proofreading, typographical errors may occur. Not available 01/14/2023 17:36:22 06/01/2023 06/01/2023 This note is dictated and transcribed by [employer]. Enterostomal Nurse variances may occur. Despite proofreading, typographical errors may occur. Not available 06/01/2023 12:19:19 Plan of Treatment Reminders Order Date Submit Date Provider Last Modified By Organization Details Last Modified Time Details Appointments None record ed. Lab None record ed. Referral None record ed. Procedures None record ed. Surgeries None record ed. Imaging XR, ankle, 3 or more view 023 01/15/20 23 [email or web address] [facility] [place], [facility], [place], [address], 3 17:36:51 Medication Orders None record ed. Patient TargetsNo targets recorded. Patient InstructionsNo instructions recorded. Reason for Referral None Reported. Results Created Date Observation Date Name Description Value Unit Range Abnormal Flag Note LastModifiedBy Organization Detail LastModifiedTime 06/17/20 22 06/17/2022 US, renal No observ ation record ed. [email or web address].[id number] [facility] [address], [place], [address], 10/01/2022 18:54:48 01/15/20 23 XR, ankle , 3 or more view No observ ation record ed. [email or web address] [facility] [place] [address], [place], [address], 01/14/2023 17:36:52 01/15/20 23 08/27/2022 MRI, ankle , w/o contr ast No observ ation record ed. [email or web address] Not Available 01/14 18:21:58 Result Notes None recorded. Problems Name Problem SNOMED Code Status Onset Date Resolution Date Notes Provider Name and Address Organization Details Recorded Time Contusion of left ankle 8778229588238 9103 Active 2021 Not Available [facility] 3 18:53:00 Pain of left ankle joint 4236908341059 9103 Active 2019 Not Available [facility] 3 18:53:01 Postoperat horacio visit 882700878 Active 2020 Not Available [facility] 3 18:53:01 Asthma 834770944 Active 2019 Not Available [facility] 3 18:53:01 Localized, secondary osteoarthr itis of the ankle and/or foot 303928586 Active 2021 Not Available [facility] 3 18:53:01 Dehiscence of surgical wound 95881157 Active 2020 Not Available [facility] 3 18:53:01 Muscle weakness 96049738 Active 2021 Not Available [facility] 3 18:53:01 Peroneal tendinitis of left lower limb 2335606707545 07 Active 2020 Not Available [facility] 3 18:53:01 Stiffness of left ankle 8433007415975 07 Active 2020 Not Available [facility] 3 18:53:02 Ganglion cyst 850586477 Active 2019 Not Available [facility] 3 18:53:02 Peroneal tendinitis 72122168 Active 2019 Not Available [facility] 3 18:53:02 Problem Notes None recorded. Medical Equipment None Reported. Allergies Allergen ID Allergen Name Allergen Category Reaction Reaction Severity Criticality Documentation Date Start Date Code Code System Note Provider Name and Address Organization Details Recorded Time 84778 fluticaso ne / salmetero l medicatio n Not available Not available Not available 10/01/2022 87824 5 RxNorm throa t swell ing Not Available [facility] 3 18:54:43 Medications Name Sig Start Date Stop Date Status Note LastModified by Organization Details LastModified Time amoxicillin 500 mg capsule TAKE 1 CAPSULE BY MOUTH TWICE DAILY BEFORE MEALS 12/07 completed Not Available Not Available Not Available valacyclovi r 1 gram tablet TAKE 2 TABLETS BY MOUTH EVERY 12 HOURS FOR 1 DAY active Not Available Not Available No t Available Medrol (Gómez) 4 mg tablets in a dose pack Use as directed active Not Available Not Available No t Available prednisone 20 mg tablet 02/27 completed Not Available Not Available Not Available Zithromax Z-Gómez 250 mg tablet TAKE 2 TABLETS (500 MG) BY ORAL ROUTE ONCE DAILY FOR 1 DAY THEN 1 TABLET (250 MG) BY ORAL ROUTE ONCE DAILY FOR 4 DAYS active Not Available Not Available No t Available metronidazo le 500 mg tablet TAKE 1 TABLET BY MOUTH NOW THEN TWICE DAILY UNTIL ALL TAKEN 10/31 completed Not Available Not Available Not Available sulfamethox azole 800 mg-trimetho prim 160 mg tablet TAKE 1 TABLET BY MOUTH EVERY 12 HOURS active Not Available Not Available No t Available tramadol 50 mg tablet TAKE 1 TABLET BY MOUTH EVERY 6 HOURS NEEDED active Not Available Not Available No t Available triamcinolo ne acetonide 0.1 % topical cream 02/27 completed Not Available Not Available Not Available oxycodone-a cetaminophe n 5 mg-325 mg tablet TAKE 1 TABLET BY MOUTH EVERY 8 HOURS NEEDED FOR MODERATE TO SEVERE PAIN active Not Available Not Available No t Available benzonatate 100 mg capsule 02/27 completed Not Available Not Available Not Available doxycycline monohydrate 100 mg capsule Take 1 capsule twice a day by oral route with meals for 7 days. active Not Available Not Available No t Available diclofenac sodium 75 mg tablet,lynn yed release Take 1 tablet twice a day by oral route for 30 days. active Not Available Not Available No t Available albuterol sulfate HFA 90 mcg/actuati on aerosol inhaler INHALE 2 PUFFS BY MOUTH EVERY 4 TO 6 HOURS NEEDED FOR SHORTNESS OF BREATH OR WHEEZING active Not Available Not Available No t Available celecoxib 100 mg capsule TAKE 1 CAPSULE BY MOUTH TWICE DAILY WITH MEALS active Not Available Not Available No t Available fluticasone propionate 50 mcg/actuati on nasal spray,suspe nsion 02/27 completed Not Available Not Available Not Available loratadine 10 mg tablet 02/27 completed Not Available Not Available Not Available amoxicillin 875 mg-potassiu m clavulanate 125 mg tablet 02/27 completed Not Available Not Available Not Available Twinrix (PF) 720 TERRI unit-20 mcg/mL intramuscul ar syringe 02/27 completed Not Available Not Available Not Available Adacel (Tdap Adolesn/James lt)(PF)2 Lf-(2.5-5-3 -5)-5 Lf/0.5 mL IM syringe active Not Available Not Available N ot Available Vitals Date Recorded Body height Respiratory rate Oxygen saturation Oxygen saturation in Arterial blood by Pulse oximetry Heart rate Systolic blood pressure Diastolic blood pressure Provider Name and Address Organization Details Last Updated DateTime 3 165.1 cm 14 /min 99 % 99 % 110 /min 173 mm[Hg] 109 mm[Hg] Nanette Merlos [facility] 3 17:23:44 Date Recorded Body height Heart rate Respiratory rate Oxygen saturation Oxygen saturation in Arterial blood by Pulse oximetry Provider Name and Address Organization Details Last Updated DateTime 3 165.1 cm 97 /min 14 /min 99 % 99 % Nanette Merlos [facility] 3 17:08:02 Date Recorded Body height Heart rate Respiratory rate Oxygen saturation Oxygen saturation in Arterial blood by Pulse oximetry Systolic blood pressure Diastolic blood pressure Provider Name and Address Organization Details Last Updated DateTime 3 165.1 cm 113 /min 14 /min 99 % 99 % 121 mm[Hg] 98 mm[Hg] Nanette Merlos [place] [facility] 3 17:10:35 Date Recorded Body height Heart rate Respiratory rate Oxygen saturation Oxygen saturation in Arterial blood by Pulse oximetry Systolic blood pressure Diastolic blood pressure Provider Name and Address Organization Details Last Updated DateTime 3 165.1 cm 91 /min 14 /min 99 % 99 % 131 mm[Hg] 93 mm[Hg] Nanette Merlos [place] - [facility] 3 11:57:18 Date Recorded Body mass index (BMI) Body height Body weight Provider Name and Address Organization Details Last Updated DateTime 07/10/2022 35.3 kg/m2 165.1 cm 50686.58 g Not Available [facility] 10/01/2022 18:52:31 Social History None recorded. Functional Status None recorded. Mental Status None recorded. Family History Relationship Description Onset Age of this Age Resolved Age Notes LastModified by Organization Details LastModified Time Mother Malignant neoplasm of skin [id number] Not available 10/01/2022 18:52:16 Mother Hypertensive disorder [id number].009 [id number] Not available 10/01/2022 18:52:16 Notes:father passed in car a ccident pt age 2 Medical History Condition Response ALLERGIES/HAYFEVER Y ASTHMA Y HEADACHES/MIGRAINES Y Gynecological HistoryNo gynecological history recorded. Obstetrics History GPAL:G 0 P 0 0 0 0 Immunizations Vaccine Type Date Status Note Provider Nam e and Address Organization Details Recorded Time Tdap 03/21/2019 completed Not Available [facility] 10/01/2022 18:54:40 Past Encounters Encounter ID Performer Location Encounter Start Date Encounter Closed Date Diagnosis/Indication Diagnosis SNOMED-CT Code Diagnosis ICD10 Code Diagnosis Note [id number] [facility] [place] [address] [place] [address] 10/08/2020 00:00:00 10/09/2020 09:00:03 [id number] [facility] [place] [address] [place] [address] 10/22/2020 00:00:00 10/22/2020 13:30:06 [id number] [facility] Leonora villar [address] [place] [address] 10/31/2020 00:00:00 10/31/2020 18:39:25 [id number] [facility] [place] [address] [place] [address] 11/19/2020 00:00:00 11/19/2020 12:57:58 [id number] [facility] [place] [address] [place] [address] 11/29/2020 00:00:00 11/29/2020 14:50:02 [id number] [facility] _ATHENA_M IGRATION_ DEFAULT_1 _1 , 12/07/2020 00:00:00 12/10/2020 09:08:05 [id number] [facility] [place] [address] [place] [address] 12/17/2020 00:00:00 12/17/2020 11:45:05 [id number] [facility] [place] [address] [place] [address] 01/07/2021 00:00:00 01/08/2021 13:33:04 [id number] [facility] [place] [address] [place] [address] 01/21/2021 00:00:00 01/21/2021 14:37:07 [id number] [facility] [place] [address] [place] [address] 02/18/2021 00:00:00 02/18/2021 14:30:51 [id number] [facility] [place] [address] [place] [address] 03/21/2021 00:00:00 03/22/2021 10:02:59 [id number] [facility] [place] [address] [place] [address] 04/18/2021 00:00:00 04/21/2021 13:09:43 [id number] [facility] [place] [address] [place] [address] 05/23/2021 00:00:00 05/23/2021 15:02:50 [id number] [facility] [place] [address] [place] [address] 07/01/2021 00:00:00 07/01/2021 14:28:47 [id number] [facility] [place] [address] [place] [address] 08/22/2021 00:00:00 08/22/2021 13:43:53 [id number] [facility] [place] [address] [place] [address] 09/26/2021 00:00:00 09/26/2021 14:45:23 [id number] [facility] Leonora villar [address] [place] [address] 10/10/2021 00:00:00 10/10/2021 14:59:35 [id number] [facility] [place] [address] [place] [address] 11/21/2021 00:00:00 11/21/2021 13:16:24 [id number] [facility] [place] [address] [place] [address] 02/06/2022 00:00:00 02/06/2022 11:53:29 [id number] [facility] [place] [address] [place] [address] 03/03/2022 00:00:00 03/03/2022 13:42:20 [id number] [facility] [place] [address] [place] [address] 04/03/2022 00:00:00 04/08/2022 10:35:30 [id number] [facility] [place] [address] [place] [address] 07/10/2022 00:00:00 07/10/2022 12:28:58 [id number] Logan Hackett DPM [facility] [place] [address] [place] [address] 01/12/2023 17:13:44 01/15/2023 09:23:22 Pain of left ankle joint 5705065545 [id number] M25.572 Rx ankle bracepatie nt to wear Cam boot or ankle brace with weight-lisa ringrepeat x-rays today negative for any acute ankle findingsMR I from 08-27-22- negative for any acute findingsfo llow-up in 1 month possible repeat MRI Peroneal t endinitis of left lower limb [id number] 52239 M76.72 as above [id number] Logan Hackett DPM [facility] [place] [address] [place] [address] 02/12/2023 17:03:48 02/26/2023 12:07:29 Pain of left ankle joint 7437763001 [id number] M25.572 Rx ankle bracepatie nt to wear Cam boot or ankle brace with weight-lisa ringrepeat x-rays today negative for any acute ankle findingsMR I from 08-27-22- negative for any acute findingsfo llow-up in 1 month possible repeat MRI [id number] Logan Hackett DPM [facility] [place] [address] [place], [place] [address] 03/26/2023 17:06:07 03/31/2023 11:32:08 Pain of left ankle joint 1227347212 [id number] M25.572 Rx ankle brace , continuepa tient to go to physical therapyfol low-up after therapy [id number] Logan Hackett DPM [facility] [place] [address] [place] [address] 06/01/2023 11:51:20 06/01/2023 12:23:02 Pain of left ankle joint 2628354718 6210167 M25.572 Rx ankle brace , continueFi nished physical therapy- did not helpRx orthopedic referral- 2nd opinioncon tinue non working until 2nd opinionfol low-up as needed Health Concerns Section Related Observation LastModified by Organization Detai ls LastModified Time None Recorded Concern Status LastModified by Organization Details LastModified Time None Recorded Advance Directives Directive None Recorded Payers Insurance Date Sequence Insurance Name Policy Number Policy Box Covered Member ID Box Member ID Guarantor Name 10/30/2023 1 [place] [id number] Pili Branscum [id number] Pili Branscum 10/30/2023 2 [place] Pili Branscum [id number] Pili Branscum 10/30/2023 [place] DURABLE MEDICAL EQUIPMENT Pili Branscum [id number] Pili Branscum 10/01/2022 [facility] Pili Branscum Pili Branscum Notes Date Note Type Note Provider Name and Address Organization Details Recorded Time 01/12/2023 text/html . Patient is a 37-year-old female who presents the office with complaints of left ankle joint pain. Patient has had history past [facility]. Patient has underwent MRI and x-rays which were negative for any acute findings. Patient states she continues have pain which she states is along her peroneal tendon area. Patient states the pain is worse when she is walking or standing. Patient denies any recent injury. Patient denies any other pedal complaints. Logan Hackett DPM [address], [place], [address], [employer] [facility] 01/14/2023 17:37:02 02/12/2023 text/html . Patient is a 37-year-old female who returns the office for left peroneal tendinitis. Patient states overall she is doing about the same. Patient states that she intermittently has pain along her peroneal tendons. Patient denies any new injury to the area. Patient states she has not yet returned to work. Patient has been unable to obtain the brace and has continue using the cam boot intermittently. Patient denies any other complaints. Logan Hackett DPM [address], [place], [address], [facility] [employer] 02/26/2023 10:14:52 03/26/2023 text/html . Patient is a 37-year-old female who returns the office for follow-up on left ankle joint pain. Patient did not obtain any physical therapy. Patient states that she was out of town and had other things going on due to a in the family. Patient states the pain might be a little better with use of the ankle brace. Patient denies any other pedal complaints. Logan Hackett DPM [address], [place], [address], [employer] [facility] 03/30/2023 14:36:29 06/01/2023 text/html . Patient is a 37-year-old female who returns the office for follow-up on left ankle joint pain. Patient had MRI which was negative for any acute findings as well as x-rays. Patient has went to physical therapy and states she continues have pain. Patient states the pain is worse with range of motion walking. Patient denies any other complaints. Logan Hackett DPM [address], [place], [address], [facility] 06/01/2023 12:20:07 OBGyn Episode No OBEpisode recorded.
--- NOTE | 2025-01-16 11:52 | WPDHPUPDATE1 ---
History and Physical Update Update Date/Time: 01/16/25 11:52 History and Physical has been reviewed, including an updated exam of the patient. There are NO changes in the patient's condition. Risks, benefits, and alternatives have been discussed and questions answered. Patient agrees to proceed with procedure.
--- NOTE | 2025-01-16 14:40 | P.PNAN_ITS ---
Anes - Initial Pre Proc Eval Procedure: Operation Date: 01/16/25 15:30 Proposed Procedures p Bilateral Nasal Endoscopy, Left Sided Control of Epistaxis - Romulo Baeza MD Date/Time: 01/16/25 14:40 Surgeon: Romulo Baeza MD Pre Op Diagnosis: recurrent nose bleeds Patient Data Age: 39 Gender: F Height: 1.65 m Weight: 101 kg Allergies Allergy/AdvReac Type Severity Reaction Status Date / Time fluticasone (From Advair Allergy Unknown throat Verified 01/13/25 10:50 Diskus) swells salmeterol (From Advair Allergy Unknown throat Verified 01/13/25 10:50 Diskus) swells Home Medications ?Medication ?Instructions ?Recorded ?Confirmed ?Type naproxen 500 mg tablet 500 mg PO BID PRN pain #60 tabs 09/10/23 01/13/25 Rx albuterol sulfate 90 mcg/actuation See Rx Instructions .Route 01/11/24 01/13/25 Rx aerosol inhaler .COMPLEX #8.5 grams valacyclovir 1 gram tablet See Rx Instructions .Route 08/09/24 01/13/25 Rx .COMPLEX #2 tabs mupirocin 2 % topical ointment 1 applic topical TID #44 grams 01/11/25 01/13/25 Rx (Centany) Patient hx anesthesia problems: none Family hx anesthesia problems: none Results Review: All pre-operative results and documents have been reviewed as part of the pre- operative evaluation. [facility] Past Medical History Medical History Migraine syndrome Asthma Endometriosis Surgical History Surgical History History of removal of ovarian cyst History of ankle surgery left Family History Family History Mother Skin cancer Heart murmur Hypertension Social History Social History Smoking status: Never smoker Alcohol intake: never Substance use: never Substance use type: does not use Do You Feel Safe in your Home?: Yes Lack of Transportation: No Lack of Food: Never True Current Housing: I Have Housing Concerned About Future Housing: No Difficulty Paying Gas/Electric Bills: No Difficulty Paying for Meds: No Currently Unemployed: No Education: Decline to Answer Difficulty w/ Childcare or Family Care: No Living arrangements: with family Additional living arrangements comments: Occupation/Education: occupation Additional occupation/education comments: [employer] Gender identity (if verbalized by the patient): Female Sexual Orientation (if Verbalized by the Patient): Straight or Heterosexual Spiritual care concerns: No Anes - Eval Final PreProcedure Day of Procedure 01/16/25 14:40 Patient weight: obese Heart: regular rate and rhythm Lungs: clear to auscultation Airway: Mallampati scale class III Neurological: alert and oriented Last oral intake: >/= 8 hours ASA classification: II Emergent: no Anesthetic plan: proceed Anesthesia type and monitoring: general GIVS and standard monitoring Results Review: All pre-operative results and documents have been reviewed as part of the pre-operative evaluation. Informed Consent: The patient's anesthetic plan and its attendant risks and benefits were discussed with the patient/family/POA. Questions were solicited and answers provided to the satisfaction of the patient/family/POA.
[2025-01-16] MEDS: ACETAMINOPHEN 500 MG TABLET 1000 MG PO (14:51)
[2025-01-16 14:52] LABS: BEDSIDEPREGUCG Negative (Negative)
[2025-01-16] MEDS: LACTATED RINGERS 1,000 ML 30 ML IV CONT (15:21)
--- NOTE | 2025-01-16 15:57 | WPDANESEPPF ---
Anes - Initial Pre Proc Eval Procedure: Operation Date: 01/16/25 15:30 Proposed Procedures p Bilateral Nasal Endoscopy, Left Sided Control of Epistaxis - Romulo Baeza MD Date/Time: 01/16/25 15:57 Surgeon: Romulo Baeza MD Pre Op Diagnosis: recurrent nose bleeds Patient Data Age: 39 Gender: F Height: 1.65 m Weight: 99.25 kg Last Vital Signs Temp 36.2 C L 01/16/25 14:49 Pulse 84 01/16/25 14:49 BP 124/70 01/16/25 14:49 Pulse Ox 100 01/16/25 14:49 O2 Del Method Room Air 01/16/25 14:49 Allergies Allergy/AdvReac Type Severity Reaction Status Date / Time fluticasone (From Advair Allergy Unknown throat Verified 01/16/25 14:47 Diskus) swells salmeterol (From Advair Allergy Unknown throat Verified 01/16/25 14:47 Diskus) swells Home Medications ?Medication ?Instructions ?Recorded ?Confirmed ?Type naproxen 500 mg tablet 500 mg PO BID PRN pain #60 tabs 09/10/23 01/13/25 Rx albuterol sulfate 90 mcg/actuation See Rx Instructions .Route 01/11/24 01/13/25 Rx aerosol inhaler .COMPLEX #8.5 grams valacyclovir 1 gram tablet See Rx Instructions .Route 08/09/24 01/13/25 Rx .COMPLEX #2 tabs mupirocin 2 % topical ointment 1 applic topical TID #44 grams 01/11/25 01/13/25 Rx (Centany) Laboratory Tests 01/16/25 14:49 POC Urine HCG, Qual Negative (Negative) HCG: negative Patient hx anesthesia problems: none Family hx anesthesia problems: none Results Review: All pre-operative results and documents have been reviewed as part of the pre-operative evaluation. [facility] Past Medical History Medical History Migraine syndrome Asthma Endometriosis Surgical History Surgical History History of removal of ovarian cyst History of ankle surgery left Family History Family History Mother Skin cancer Heart murmur Hypertension Social History Social History Smoking status: Never smoker Alcohol intake: never Substance use: never Substance use type: does not use Do You Feel Safe in your Home?: Yes Lack of Transportation: No Lack of Food: Never True Current Housing: I Have Housing Concerned About Future Housing: No Difficulty Paying Gas/Electric Bills: No Difficulty Paying for Meds: No Currently Unemployed: No Education: Decline to Answer Difficulty w/ Childcare or Family Care: No Living arrangements: with family Additional living arrangements comments: Occupation/Education: occupation Additional occupation/education comments: [employer] Gender identity (if verbalized by the patient): Female Sexual Orientation (if Verbalized by the Patient): Straight or Heterosexual Spiritual care concerns: No Anes - Eval Final PreProcedure Day of Procedure 01/16/25 15:57 Patient weight: obese Heart: regular rate and rhythm Lungs: normal air movement Airway: Mallampati scale class II Neurological: alert and oriented Last oral intake: >/= 8 hours ASA classification: II Emergent: no Anesthetic plan: proceed Anesthesia type and monitoring: general LMA and standard monitoring Results Review: All pre-operative results and documents have been reviewed as part of the pre-operative evaluation. Informed Consent: The patient's anesthetic plan and its attendant risks and benefits were discussed with the patient/family/POA. Questions were solicited and answers provided to the satisfaction of the patient/family/POA.
[2025-01-16] MEDS: ceFAZolin 2 GM/D5W 50 ML 2 GM/50 ML BAG IVPB (16:01)
[2025-01-16] MEDS: OXYMETAZOLINE HCL 0.05% NAS 15 ML BTL (*BKC) 1 SPRAY NASAL (16:09)
[2025-01-16] MEDS: MUPIROCIN 2% OINT 22 GM TUBE 1 APPLIC TOPICAL (16:18)
--- NOTE | 2025-01-16 16:35 | P.OP_ITS ---
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 Easily cauterized with Coblator no bleeding Description of Procedure Pre should the phi consent verified in the preoperative holding area. Patient brought to the operating room. Time-out performed. General anesthesia induced LMA secured. Patient prepped draped position procedure confirmed 2nd time-out performed. 0 degree scope utilized right-sided nasal endoscopy performed clear mild folliculitis upfront left-sided clear posteriorly gigantic telangiectatic vessel anteriorly. This was cauterized times for to obliterate the entire tree with Cobra later on a setting of 0 an Afrin-soaked pledget was placed posterior to this prior to Coblation prior to cautery and then removed afterwards mupir ocin ointment was placed the vessels completely I scraped the area no bleeding ensued. Patient tolerated the procedure well blood loss 0 cc. Care the patient given back to Anesthesiology I performed all dictated portions the procedure. Estimated Blood Loss 0 Drains No Packing No Pathology None sent Complications No immediate complications Condition Stable Disposition PACU [facility] Billing Surgery - Charge Forward: Surgery Billing
[2025-01-16] MEDS: fentaNYL CITRATE INJ (*CRX) 100 MCG/2 ML VIAL 25 MCG IV PUSH ×2 (17:10→17:15)
== END 2025-01-16 18:30 | disposition home or self-care (01) ==
PROVIDERS: PCP Nurse Practitioner Adult Health; Visit Provider Otolaryngology
PROC: (CPT 31238; principal; 2025-01-16 15:30)
DX: R04.0 Epistaxis (principal); J45.909 Unspecified asthma, uncomplicated; N80.9 Endometriosis, unspecified; H61.23 Impacted cerumen, bilateral; H93.8X3 Other specified disorders of ear, bilateral; E66.9 Obesity, unspecified; Z68.36 Body mass index [BMI] 36.0-36.9, adult; Z79.1 Long term (current) use of non-steroidal anti-inflammatories (NSAID); Z79.51 Long term (current) use of inhaled steroids; Z98.890 Other specified postprocedural states; Z84.0 Family history of diseases of the skin and subcutaneous tissue; Z82.49 Family history of ischemic heart disease and other diseases of the circulatory system
CPT/HCPCS: 31238; A9270; J0690; J1100; J2003; J2250; J2405; J2704; J3010; J7050; J7120

== ENCOUNTER 2025-02-21 13:32 | Outpatient (CLI) | payer BC, MEDICAID, SELFPAY ==
--- OUTSIDE RECORDS SUMMARY | 2025-02-21 13:40 | XMS_ITS | Clinical Summary ---
Author Organization [facility] Address [address] [place] [address] Care Team Providers Care Wellness Educator Name Role Phone April Colvin DEX Primary Care Provider [phone] Allergies Active Allergy Reactions Criticality Noted Date [...] 1986 Annual Physical 1989 Hepatitis C 2004 HPV Vaccines (1 - 3-dose SCDM series) 2013 Cervical Cancer Screening Pap with HPV Testing [...] complete this topic Insurance MEDICAID Care Teams Wellness Educator Relationship Specialty Start Date End Date April Colvin NP [address] [place] [id number] PCP - General NURSE PRACTITIONER 12/09/21
--- OUTSIDE RECORDS SUMMARY | 2025-02-21 13:40 | XMS_ITS | Continuity of Care Document ---
Author Organization [facility] Address [address] [facility] [address] [place] [address] Phone Care Team Providers Care Stock Turner Name Role Phone Mathur OD, José Unavailable Unavailable Advance Directives Directive Yes / No Effective Date File Name No Information Encounters Encounter Description Practice Location Reason(s) For Visit Diagnoses Date Provider Providers Copied on Encounter [facility], [address], [place], [place], [id number], [place] tel:[phone] [facility] No Information Apr-2 8-200 6 Mathur OD José. [address] , [address], [place], [address], [place]. tel:[phone] Family History Family Member Type Diagnosis Age At Onset No Information Payers Payer name Insurance type Covered constitution party ID Authoriza tion(s) Medicaid [facility] [id number] Social History Type Description Quantity Date Captured [...]
--- OUTSIDE RECORDS SUMMARY | 2025-02-21 13:40 | XMS_ITS | Clinical Summary ---
Author Organization [facility] Address [address] [place] [address] Care Team Providers Care Telephonic Nurse Name Role Phone April Colvin ИВАН-WIRELINE OPERATOR Primary Care Provider + Source Comments [facility],non-owned Affiliates and Associated Physician Practices is amultiple site organization consisting of ambulatory clinics and hospital sitesin [place], [place], [place] and [place]. This disclosure is being madepursuant to the Care Everywhere program and may not contain all information available regarding this patient. 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 Gender Identity Not on file Sexual Orientation Not on file Plan of Treatment Health Maintenance Due Date Last Done Comments HIV SCREENING 2001 HEPATITIS C SCREENING 11/05/2004 PAP SMEAR 11/11/2007 HPV VACCINE (1 - 3-dose SCDM series) 2013 HEPATITIS B VACCINE (2 of 3 - Hep B Twinrix 3-dose series) 04/14/2019 03/17/2019 COVID-19 VACCINE (1 - season) 2024 DEPRESSION SCREENING 08/03/2024 INFLUENZA VACCINE (#1) 2025 8, 05/05/2015, 09/01/2014 DTAP/TDAP/TD VACCINES (5 - Td [...] to complete this topic Insurance * Guarantor: [id number] Account Type Relation to Patient Date of Phone Billing Address Workers Comp Employer [employer] - [place] [facility] Care Teams Telephonic Nurse Relationship Specialty Start Date End Date April Colvin APRN-CNP [address] [address] PCP - General 05/08/22
--- OUTSIDE RECORDS SUMMARY | 2025-02-21 13:40 | XMS_ITS | Data Portability ---
Author Organization [facility], Main Office Address [address] [place] [address] Care Team Providers Care Complaint Evaluation Officer Name Role Phone MANURI Primary Care Provider [phone] URI CONWAY Referring Provider [phone] NICANOR NGUYEN Conference Center Coordinator [phone] Assessment Encounter Date Assessment Date Assessment LastModified by Organization Details LastModified Time 01/12/2023 01/12/2023 This note is dictated and transcribed by [employer]. Print Buyer variances may occur. Despite proofreading, typographical errors may occur. [email or web address] Not available 01/14/2023 17:36:22 06/01/2023 06/01/2023 This note is dictated and transcribed by [employer]. Print Buyer variances may occur. Despite proofreading, typographical errors may occur. [email or web address] Not available 06/01/2023 12:19:19 Plan of Treatment Reminders Order Date Submit Date Provider Last Modified By Organization Details Last Modified Time Details Appointments None record ed. Lab None record ed. Referral None record ed. Procedures None record ed. Surgeries None record ed. Imaging XR, ankle, 3 or more view 023 01/15/20 23 [email or web address] [facility] [place], [address] [place] [address] [address], [place], [address], 17:36:51 Medication Orders None record ed. Patient TargetsNo targets recorded. Patient InstructionsNo instructions recorded. Reason for Referral None Reported. Results Created Date Observation Date Name Description Value Unit Range Abnormal Flag Note LastModifiedBy Organization Detail LastModifiedTime 06/17/20 22 06/17/2022 US, renal No observ ation record ed. [id number] [address] [facility] [address], [place], [address], 10/01/2022 18:54:48 01/15/20 XR, ankle , 3 or more view No observ ation record ed. [email or web address] [facility] [place] [address], [place], [address], 01/14/2023 17:36:52 01/15/20 23 08/27/2022 MRI, ankle , w/o contr ast No observ ation record ed. [email or web address] Not Available 01/14 18:21:58 Result Notes None recorded. Problems Name Problem SNOMED Code Status Onset Date Resolution Date Notes Provider Name and Address Organization Details Recorded Time Asthma 184699986 Active 2019 Not Available [facility] 3 18:53:01 Ganglion cyst 662785639 Active 2019 Not Available [facility] 3 18:53:02 Pain of left ankle joint 4784373740204 9103 Active 2019 Not Available [facility] 3 18:53:01 Peroneal tendinitis 49338797 Active 2019 Not Available [facility] 3 18:53:02 Dehiscence of surgical wound 71146713 Active 2020 Not Available [facility] 3 18:53:01 Postoperat horacio visit 285675766 Active 2020 Not Available [facility] 3 18:53:01 Stiffness of left ankle 9570581366802 07 Active 2020 Not Available [facility] 3 18:53:02 Peroneal tendinitis of left lower limb 9040765481595 07 Active 2020 Not Available [facility] 3 18:53:01 Localized, secondary osteoarthr itis of the ankle and/or foot 024589569 Active 2021 Not Available [facility] 3 18:53:01 Contusion of left ankle 4447352931557 9103 Active 2021 Not Available [facility] 3 18:53:00 Muscle weakness 54511289 Active 2021 Not Available [facility] 3 18:53:01 Problem Notes None recorded. Medical Equipment None Reported. Allergies Allergen ID Allergen Name Allergen Category Reaction Reaction Severity Criticality Documentation Date Start Date Code Code System Note Provider Name and Address Organization Details Recorded Time 36096 fluticaso ne / salmetero l medicatio n Not available Not available Not available 10/01/2022 97807 5 RxNorm throa t swell ing Not Available [facility] 3 18:54:43 Medications Name Sig Start Date [...] blood by Pulse oximetry Heart rate Systolic And Diastolic Provider Name and Address Organization Details Last Updated DateTime 3 165.1 cm 14 /min 99 % 99 % 110 /min 173/109 mm[Hg] Nanette JUAREZ [employer] [facility] 3 17:23:44 Date Recorded Body height Heart rate Respiratory rate Oxygen saturation Oxygen saturation in Arterial blood by Pulse oximetry Provider Name and Address Organization Details Last Updated DateTime 3 165.1 cm 97 /min 14 /min 99 % 99 % Nanette Merlos [employer] 3 17:08:02 Date Recorded Body height Heart rate Respiratory rate Oxygen saturation Oxygen saturation in Arterial blood by Pulse oximetry Systolic And Diastolic Provider Name and Address Organization Details Last Updated DateTime 3 165.1 cm 113 /min 14 /min 99 % 99 % 121/98 mm[Hg] Nanette JUAREZ - [facility] 3 17:10:35 Date Recorded Body height Heart rate Respiratory rate Oxygen saturation Oxygen saturation in Arterial blood by Pulse oximetry Systolic And Diastolic Provider Name and Address Organization Details Last Updated DateTime 3 165.1 cm 91 /min 14 /min 99 % 99 % 131/93 mm[Hg] Nanette Merlos MS - [facility] [employer] [facility] 3 11:57:18 Date Recorded Body mass index (BMI) Body height Body weight Provider Name and Address Organization Details Last Updated DateTime 07/10/2022 35.3 kg/m2 165.1 cm 41088.58 g Not Available [facility] 10/01/2022 18:52:31 Social History None recorded. Functional Status None recorded. Mental Status None recorded. Family History Relationship Description Onset Age of this Age Resolved Age Notes LastModified by Organization Details LastModified Time Mother Malignant neoplasm of skin [id number] Not available 10/01/2022 18:52:16 Mother Hypertensive disorder [id number] Not available 10/01/2022 18:52:16 Notes:father passed in car a ccident pt age 2 Medical History Condition Response HEADACHES/MIGRAINES Y ALLERGIES/HAYFEVER Y ASTHMA Y Gynecological HistoryNo gynecological history recorded. Obstetrics History GPAL:G 0 P 0 0 0 0 Immunizations Vaccine Type Date Status Note Provider Nam e and Address Organization Details Recorded Time Tdap 03/21/2019 completed Not Available [facility] 10/01/2022 18:54:40 Past Encounters Encounter ID Performer Location Encounter Start Date Encounter Closed Date Diagnosis/Indication Diagnosis SNOMED-CT Code Diagnosis ICD10 Code Diagnosis Note [id number] [facility] [place] [address] [place] [address] 10/08/2020 00:00:00 10/09/2020 09:00:03 [id number] [facility] [place] [address] [place] [address] 10/22/2020 00:00:00 10/22/2020 13:30:06 [id number] [facility] Leonora villar [address] [place] [address] 10/31/2020 00:00:00 10/31/2020 18:39:25 [id number] [facility] [place] [address] [place] [address] 11/19/2020 00:00:00 11/19/2020 12:57:58 [id number] [facility] [place] [address] [place] [address] 11/29/2020 00:00:00 11/29/2020 14:50:02 [id number] [facility] _ATHENA_M IGRATION_ DEFAULT_1 _1 , 12/07/2020 00:00:00 12/10/2020 09:08:05 [id number] [facility] [place] [address] [place] [address] 12/17/2020 00:00:00 12/17/2020 11:45:05 [id number] [facility] [place] [address] [place] [address] 01/07/2021 00:00:00 01/08/2021 13:33:04 [id number] [facility] [place] [address] [place] [address] 01/21/2021 00:00:00 01/21/2021 14:37:07 [id number] [facility] [place] [address] [place] [address] 02/18/2021 00:00:00 02/18/2021 14:30:51 [id number] [facility] [place] [address] [place] [address] 03/21/2021 00:00:00 03/22/2021 10:02:59 [id number] [facility] [place] [address] [place] [address] 04/18/2021 00:00:00 04/21/2021 13:09:43 [id number] [facility] [place] [address] [place] [address] 05/23/2021 00:00:00 05/23/2021 15:02:50 [id number] [facility] [place] [address] [place] [address] 07/01/2021 00:00:00 07/01/2021 14:28:47 [id number] [facility] [place] [address] [place] [address] 08/22/2021 00:00:00 08/22/2021 13:43:53 [id number] [facility] [place] [address] [place] [address] 09/26/2021 00:00:00 09/26/2021 14:45:23 [id number] [facility] Leonora villar [address] [place] [address] 10/10/2021 00:00:00 10/10/2021 14:59:35 [id number] [facility] [place] [address] [place] [address] 11/21/2021 00:00:00 11/21/2021 13:16:24 [id number] [facility] [place] [address] [place] [address] 02/06/2022 00:00:00 02/06/2022 11:53:29 [id number] [facility] [place] [address] [place] [address] 03/03/2022 00:00:00 03/03/2022 13:42:20 [id number] [facility] [place] [address] [place] [address] 04/03/2022 00:00:00 04/08/2022 10:35:30 [id number] [facility] [place] [address] [place] [address] 07/10/2022 00:00:00 07/10/2022 12:28:58 [id number] Logan Hackett DPM [facility] [place] [address] [place] [address] 01/12/2023 17:13:44 01/15/2023 09:23:22 Pain of left ankle joint 3645576504 2232068 M25.572 Rx ankle bracepatie nt to wear Cam boot or ankle brace with weight-lisa ringrepeat x-rays today negative for any acute ankle findingsMR I from 08-27-22- negative for any acute findingsfo llow-up in 1 month possible repeat MRI Peroneal t endinitis of left lower limb 9401966632 58453 M76.72 as above [id number] Logan Hackett DPM [facility] [place] [address] [place] [address] 02/12/2023 17:03:48 02/26/2023 12:07:29 Pain of left ankle joint 1168009797 1478178 M25.572 Rx ankle bracepatie nt to wear Cam boot or ankle brace with weight-lisa ringrepeat x-rays today negative for any acute ankle findingsMR I from 08-27-22- negative for any acute findingsfo llow-up in 1 month possible repeat MRI [id number] Logan Hackett DPM [facility] Pod[facility] [place] [address] [place] [address] 03/26/2023 17:06:07 03/31/2023 11:32:08 Pain of left ankle joint 5983883910 2872353 M25.572 Rx ankle brace , continuepa tient to go to physical therapyfol low-up after therapy [id number] Logan Hackett DPM [facility] [place] [address] [place] [address] 06/01/2023 11:51:20 06/01/2023 12:23:02 Pain of left ankle joint 1081972481 0018106 M25.572 Rx ankle brace , continueFi nished [...] Box Member ID Guarantor Name 10/30/2023 1 [place] [id number] Pili Branscum [id number] Pili Branscum 10/30/2023 2 [place] Pili Branscum [id number] Pili Branscum 10/30/2023 [place] DURABLE MEDICAL EQUIPMENT Pili Branscum [id number] Pili Branscum 10/01/2022 [facility] Pili Branscum Pili Branscum Notes Date [...] any other pedal complaints. Logan Hackett DPM [address] [place] [address] [address], [place], [address], [employer] 01/14/2023 17:37:02 02/12/2023 text/html . Patient is [...] any other complaints. Logan Hackett DPM [address], [place], [address], [employer] [facility] 02/26/2023 10:14:52 03/26/2023 text/html . Patient is [...] any other pedal complaints. Logan Hackett DPM [address], [place], [address], [employer] [facility] 03/30/2023 14:36:29 06/01/2023 text/html . Patient is [...] any other complaints. Logan Hackett DPM [address], [place], [address], [employer] [facility] 06/01/2023 12:20:07 OBGyn Episode No OBEpisode recorded.
[2025-02-21 19:00] LABS: Hematocrit 40.8 % (37.0-47.0); Hemoglobin 13.6 g/dL (12.0-15.0); Immature Granulocyte Percent A 0.3 % (0-0.5); Lymphocytes Absolute Auto 3.02 K/mm3 (0.9-3.2); Mean Corpuscular HGB Conc 33.3 g/dl (32-36); Mean Corpuscular Hemoglobin 29.8 pg (26-34); Mean Corpuscular Volume 89.5 fl (80-100); Nucleated Red Blood Cells Absolute Auto 0.000 K/mm3 (0.0-0.012); Nucleated Red Blood Cells Perc 0.0 % (0.0-0.2); Platelet Count Result 415 k/mm3 (150-375); Red Blood Count 4.56 M/mm3 (4.2-5.4); White Blood Count 8.8 K/mm3 (4.5-10.0)
== END 2025-02-21 13:33 | disposition home or self-care (01) ==
LOC: ANHBWCLAB 13:33
PROVIDERS: PCP Nurse Practitioner Adult Health; Visit Provider Nurse Practitioner Adult Health
DX: D72.829 Elevated white blood cell count, unspecified (principal)
CPT/HCPCS: 36415; 85025